=== PATIENT | female | born 1990 | race African-American/Black ===

== ENCOUNTER 2017-09-06 13:36 | Emergency (ER) | payer BC, OTHER ==
[2017-09-06 14:53] LABS: Bilirubin Negative (Negative); Blood, Urine Negative (Negative); Clarity Clear (Clear); Glucose, Urine (Dipstick) Negative (Negative); Leukocyte Negative (Negative); Nitrite Negative (Negative); Protein, Urine (Dipstick) Negative (Neg-Trace); pH, Urine 7.5 (5.0-9.0)
[2017-09-06 15:49] LABS: Pregnancy Test - Urine (BHCG) Negative (Negative); Pregu Control Background? CLEAR/WHITE (CLR/WHITE); Pregu Control Bar Appear? YES (CONTROL BAR)
--- NOTE | 2017-09-06 16:04 | RAD ---
CERVICAL SPINE THREE VIEWS: 09/06/17 HISTORY: 26-year-old female with neck injury. Portions of the odontoid and C2 and C1 are partially obscured on the AP open mouth views. No evidenc e for acute fracture or dislocation. No soft tissue swelling. No malalignment. IMPRESSION: Portions of C1 and C2 odontoid are partially obscured. No malalignment or prevertebral soft tissue s welling or fracture involving the visualized C-spine. If there remains clinical concern for acute cervical spine injury, consider followup CT. POS: [facility]
--- NOTE | 2017-09-06 16:05 | RAD ---
THREE VIEWS LUMBAR SPINE: History: Injury. Comparison: None. FINDINGS: Five lumbar type vertebral bodies. Lumbar spine vertebral body height is maintained. No fracture. No malalignment. IMPRESSION: Unremarkable three views lumbar spine. POS: [facility]
--- NOTE | 2017-09-06 16:11 | RAD ---
THREE VIEWS THORACIC SPINE: 09/06/17 INDICATION: Back injury with pain. FINDINGS: No acute fracture or subluxation is evident. Paraspinal alignment is preserved. Visualized lungs are clear. There is twelve rib bearing thoracic vertebra. IMPRESSION: No acute osseous abnormality. POS: [facility]
== END 2017-09-06 16:02 | disposition home or self-care (01) ==
LOC: NAV ERS 13:36
DX: S39.012A Strain of muscle, fascia and tendon of lower back, initial encounter (principal); S16.1XXA Strain of muscle, fascia and tendon at neck level, initial encounter; V43.91XA Unspecified car occupant injured in collision with sport utility vehicle in traffic accident, initial encounter
CPT/HCPCS: 72040; 72072; 72100; 81003; 81025

== ENCOUNTER 2017-12-02 13:12 | Emergency (ER) | payer BC, OTHER | END 2017-12-02 13:49 | disposition home or self-care (01) | LOC: NAV ERS 13:12 | DX: B34.9 Viral infection, unspecified (principal) | CPT/HCPCS: 99283 ==

== ENCOUNTER 2017-12-26 21:13 | Emergency (ER) | payer BC ==
[2017-12-26] MEDS ORDERED: Sodium Chloride 0.9% 1,000 ML ONE (21:36)
[2017-12-26 21:53] LABS: #Basophils 0.1 thou/uL (0.0-0.2); #Eosinphils 0.3 thou/uL (0.0-0.7); #Lymphocytes 4.2 thou/uL (1.20-3.40); #Monocytes 0.7 thou/uL (0.11-0.59); %Basophils 1.2 % (0.0-1.0); %Eosinophils 3.2 % (0.0-10.0); %Lymphocytes 40.3 % (21.0-51.0); %Monocytes 6.7 % (0.0-10.0); %Neutrophils 48.6 % (42.0-75.0); Hemoglobin 12.8 g/dL (12.0-16.0); Mean Corpuscular HGB CONC 33.3 g/dL (32.0-36.0); Mean Corpuscular Volume 84.1 fl (81.0-99.0); Mean Platelet Volume 9.9 fL (7.4-10.4); Platelet Count 260 thou/uL (130-400); Red Blood Cell (RBC) Count 4.59 mill/uL (4.20-5.40); White Blood Cell (WBC) Count 10.3 thou/uL (4.8-10.8)
[2017-12-26] MEDS ORDERED: Ibuprofen 800 MG TAB ONE (22:03)
[2017-12-26 22:22] LABS: ALT (SGPT) 30 U/L (8-55); AST (SGOT) 19 U/L (5-34); Albumin 3.9 g/dL (3.5-5.0); Alkaline Phosphatase 93 U/L (40-150); Anion Gap 14 mmol/L (10-20); BUN (Urea Nitrogen) 9 mg/dL (7.0-18.7); Bilirubin, Total 0.2 mg/dL (0.2-1.2); Calc. Creatinine Clearance 0 mL/min (70-130); Calcium 9.6 mg/dL (7.8-10.44); Carbon Dioxide 27 mmol/L (22-29); Chloride 103 mmol/L (98-107); Estimated GFR-MDRD Greater than 90; Globulin 3.8 g/dL (2.4-3.5); Glucose 120 mg/dL (70-105); Potassium 3.5 mmol/L (3.5-5.1); Protein, Total 7.7 g/dL (6.0-8.3); Sodium 140 mmol/L (136-145)
[2017-12-26 22:23] LABS: CKMB 0.7 ng/mL (0-6.6); Troponin I Less than 0.010 ng/mL (< 0.028)
== END 2017-12-26 22:43 | disposition home or self-care (01) ==
LOC: NAV ERS 21:13
DX: I10 Essential (primary) hypertension (principal); R51 Headache; E66.9 Obesity, unspecified; Z79.899 Other long term (current) drug therapy
CPT/HCPCS: 36415; 80053; 82553; 84484; 85025; 93005; 96360; J7050

== ENCOUNTER 2018-08-13 22:54 | Emergency (ER) | payer BC ==
--- NOTE | 2018-08-13 23:40 | RAD ---
RIGHT KNEE FOUR VIEWS: History: Fell off of porch with knee pain. FINDINGS: There is suggestion of some slight medial compartment narrowing. There are no signs of fracture, disl ocation, or joint effusion. IMPRESSION: No evidence of fracture. POS: [facility]
--- NOTE | 2018-08-13 23:41 | RAD ---
LEFT ANKLE THREE VIEWS: History: Ankle pain after injury. FINDINGS: There are no signs of fracture, dislocation, or joint effusion. IMPRESSION: No evidence of fracture. POS: [facility]
[2018-08-13] MEDS ORDERED: Triple Antibiotic Oint 1 GM Packet ONE (23:47)
[2018-08-13] MEDS ORDERED: Adacel (T-DAP) 0.5 ML VIAL ONE (23:47)
[2018-08-13] MEDS ORDERED: Ibuprofen 800 MG TAB ONE (23:47)
== END 2018-08-14 00:07 | disposition home or self-care (01) ==
LOC: NAV ERS 22:54
DX: S80.01XA Contusion of right knee, initial encounter (principal); S90.02XA Contusion of left ankle, initial encounter; W10.9XXA Fall (on) (from) unspecified stairs and steps, initial encounter
CPT/HCPCS: 90471; 90715

== ENCOUNTER 2020-12-26 21:22 | Emergency (ER) | payer BC ==
[2020-12-26 21:51] LABS: BHCG - Serum Negative (NEGATIVE); Pregs Control Bar Appear? YES (CONTROL BAR)
[2020-12-26 21:52] LABS: %Basophils 0.6 % (0.0-1.0); %Eosinophils 1.3 % (0.0-10.0); %Lymphocytes 33.9 % (21.0-51.0); %Monocytes 5.7 % (0.0-10.0); %Neutrophils 58.5 % (42.0-75.0); Hemoglobin 12.9 g/dL (12.0-16.0); Manual Diff?? NO; Mean Corpuscular HGB CONC 33.1 g/dL (32.0-36.0); Mean Corpuscular Hemoglobin 29.9 pg (27.0-31.0); Mean Corpuscular Volume 90.2 fL (78.0-98.0); Mean Platelet Volume 7.3 fL (7.4-10.4); Platelet Count 302 thou/uL (130-400); Red Blood Cell (RBC) Count 4.33 mill/uL (4.20-5.40); White Blood Cell (WBC) Count 12.3 thou/uL (4.8-10.8)
[2020-12-26 21:53] LABS: #Basophils 0.1 thou/uL (0.0-0.2); #Eosinphils 0.2 thou/uL (0.0-0.7); #Lymphocytes 4.2 thou/uL (1.20-3.40); #Monocytes 0.7 thou/uL (0.11-0.59); #Neutrophils 7.2 thou/uL (1.40-6.50)
[2020-12-26 22:02] LABS: ALT (SGPT) 24 U/L (8-55); AST (SGOT) 19 U/L (5-34); Albumin 4.4 g/dL (3.5-5.0); Alcohol Less than 10 mg/dL (Less than 10); Alkaline Phosphatase 121 U/L (40-110); Anion Gap 18 mmol/L (10-20); BUN (Urea Nitrogen) 11 mg/dL (7.0-18.7); Bilirubin, Total 0.2 mg/dL (0.2-1.2); Calc. Creatinine Clearance 0 mL/min (70-130); Calcium 9.4 mg/dL (7.8-10.44); Carbon Dioxide 24 mmol/L (22-29); Chloride 101 mmol/L (98-107); Globulin 3.9 g/dL (2.4-3.5); Glucose 111 mg/dL (70-105); Lipase 29 U/L (8-78); Potassium 3.7 mmol/L (3.5-5.1); Protein, Total 8.3 g/dL (6.0-8.3); Sodium 139 mmol/L (136-145)
[2020-12-26 22:07] LABS: PTT 26.5 sec (22.9-36.1)
--- NOTE | 2020-12-26 22:46 | CT ---
Exam: CT cervical spine without contrast HISTORY: Trauma. Pain. COMPARISON: None FINDINGS: No craniocervical dissociation. Appropriate alignment of the lateral masses of C1 and C2. Intact odon toid process Appropriate alignment of the facets. Straightening of cervical lordosis is presumed to be due to patient position, muscle spasm or cervica l collar. Soft tissue neck structures: No mass, lymphadenopathy or hematoma. No prevertebral soft tissue swelli ng. Upper mediastinum and lung apices: Unremarkable Central spinal canal: Neural foramina and central spinal canal are patent. Evaluation is limited by t echnique Vertebral bodies: Cervical spine vertebral body height is maintained. No fracture. IMPRESSION: 1. No cervical spine fracture 2. Straightening of cervical lordosis as detailed above. For ligamentous injury, consider cervical sp ine MRI.
--- NOTE | 2020-12-26 23:01 | CT ---
Exam: Chest CT with contrast HISTORY: Trauma. Pain. FINDINGS: No mediastinal mass, lymphadenopathy or hematoma. Normal heart size. No significant pericardial fluid. Visualized aorta has a normal caliber. No periao rtic fat stranding No posttraumatic changes in the subdiaphragmatic structures. There is hepatic steatosis. Trachea and central bronchi are patent. Dependent atelectatic changes are minimal. No mass, consolida tion or pulmonary contusion. No pleural effusion or pneumothorax. Visualized clavicles, scapula, sternum and ribs are intact. Visualized thoracic spine demonstrates preservation of vertebral body height. No evidence of a thorac ic spine fracture. IMPRESSION: No posttraumatic change in the chest.
== END 2020-12-26 23:14 | disposition home or self-care (01) ==
LOC: NAV ERS 21:22
DX: S13.4XXA Sprain of ligaments of cervical spine, initial encounter (principal); S23.3XXA Sprain of ligaments of thoracic spine, initial encounter; I10 Essential (primary) hypertension; V49.9XXA Car occupant (driver) (passenger) injured in unspecified traffic accident, initial encounter
CPT/HCPCS: 71260; 72125; 80053; 80307; 82150; 83690; 84484; 84703; 85025; 85610; 85730; 94760

== ENCOUNTER 2021-02-22 12:42 | Emergency (ER) | payer BC ==
[2021-02-22 13:10] LABS: Bilirubin Negative (Negative); Blood, Urine Trace (Negative); Clarity Clear (Clear); Glucose, Urine (Dipstick) Negative (Negative); Ketone, Urine Negative (Negative); Leukocyte Negative (Negative); Nitrite Negative (Negative); Protein, Urine (Dipstick) 30 mg/dL (Neg-Trace); Urobilinogen 0.2 mg/dL (Less than 2); pH, Urine 6.5 (5.0-9.0)
[2021-02-22 13:19] LABS: RBC/HPF None Seen HPF (0-3); Specific Gravity, Urine 1.028 (1.002-1.036); Squamous Epithelial 0-3 HPF (0-3)
[2021-02-22 13:20] LABS: Pregnancy Test - Urine (BHCG) POSITIVE (Negative); Pregu Control Background? CLEAR/WHITE (CLR/WHITE); Pregu Control Bar Appear? YES (CONTROL BAR); Specific Gravity 1.028 (1.002-1.036)
[2021-02-22] MEDS ORDERED: Morphine 4 MG/ML VIAL ONE (13:56)
[2021-02-22] MEDS ORDERED: Ondansetron PF 4 MG/2 ML Vial ONE (13:56)
[2021-02-22 14:10] LABS: #Monocytes 0.6 thou/uL (0.11-0.59); #Neutrophils 14.1 thou/uL (1.40-6.50); %Basophils 0.2 % (0.0-1.0); %Eosinophils 0.1 % (0.0-10.0); %Lymphocytes 6.4 % (21.0-51.0); %Monocytes 3.6 % (0.0-10.0); %Neutrophils 89.7 % (42.0-75.0); Hemoglobin 12.1 g/dL (12.0-16.0); Mean Corpuscular HGB CONC 29.7 g/dL (32.0-36.0); Mean Corpuscular Hemoglobin 28.5 pg (27.0-31.0); Mean Platelet Volume 8.3 fL (7.4-10.4); Platelet Count 319 thou/uL (130-400); RBC Distribution Width 13.4 % (11.5-14.5); Red Blood Cell (RBC) Count 4.23 mill/uL (4.20-5.40); White Blood Cell (WBC) Count 15.7 thou/uL (4.8-10.8)
[2021-02-22 14:38] LABS: ALT (SGPT) 12 U/L (8-55); AST (SGOT) 13 U/L (5-34); Albumin 4.1 g/dL (3.5-5.0); Alkaline Phosphatase 100 U/L (40-110); Anion Gap 18 mmol/L (10-20); BUN (Urea Nitrogen) 11 mg/dL (7.0-18.7); Bilirubin, Total 0.2 mg/dL (0.2-1.2); Calc. Creatinine Clearance 0 mL/min (70-130); Carbon Dioxide 20 mmol/L (22-29); Chloride 103 mmol/L (98-107); Globulin 3.6 g/dL (2.4-3.5); Glucose 124 mg/dL (70-105); Lipase 18 U/L (8-78); Potassium 4.3 mmol/L (3.5-5.1); Protein, Total 7.7 g/dL (6.0-8.3); Sodium 137 mmol/L (136-145)
== END 2021-02-22 15:38 | disposition short-term general hospital (02) ==
LOC: NAV ERS 12:42
DX: O99.111 Other diseases of the blood and blood-forming organs and certain disorders involving the immune mechanism complicating pregnancy, first trimester (principal); D72.829 Elevated white blood cell count, unspecified; Z3A.01 Less than 8 weeks gestation of pregnancy
CPT/HCPCS: 80053; 81003; 81015; 81025; 83690; 84702; 85025; 96374; 96375; J2270; J2405

== ENCOUNTER 2022-01-19 20:34 | Emergency (ER) | payer BC ==
[2022-01-19 21:34] LABS: Bilirubin Negative (Negative); Blood, Urine Negative (Negative); Clarity Clear (Clear); Glucose, Urine (Dipstick) Negative (Negative); Ketone, Urine Trace mg/dL (Negative); Leukocyte Negative (Negative); Nitrite Negative (Negative); Protein, Urine (Dipstick) Negative (Neg-Trace)
[2022-01-19 21:40] LABS: Pregnancy Test - Urine (BHCG) Negative (Negative); Pregu Control Bar Appear? YES (CONTROL BAR)
[2022-01-19 21:41] LABS: Pregu Control Background? CLEAR/WHITE (CLR/WHITE)
== END 2022-01-19 22:25 | disposition home or self-care (01) ==
LOC: NAV ERS 20:34
DX: M54.50 Low back pain, unspecified (principal); I10 Essential (primary) hypertension
CPT/HCPCS: 81003; 81025; 99283

== ENCOUNTER 2022-09-16 20:22 | Emergency (ER) | payer BC ==
[2022-09-16] MEDS ORDERED: Ibuprofen 200 MG TAB ONE (21:07)
[2022-09-16] MEDS ORDERED: Meclizine HCl 25 MG TAB ONE (21:07)
== END 2022-09-16 21:20 | disposition home or self-care (01) ==
LOC: NAV ERS 20:22
DX: H81.10 Benign paroxysmal vertigo, unspecified ear (principal); I10 Essential (primary) hypertension
CPT/HCPCS: 99283

== ENCOUNTER 2022-12-04 01:03 | Emergency (ER) | payer OTHER, BC | END 2022-12-04 01:40 | disposition home or self-care (01) | LOC: NAV ERS 01:03 | DX: R55 Syncope and collapse (principal); I10 Essential (primary) hypertension; W18.30XA Fall on same level, unspecified, initial encounter; Y92.69 Other specified industrial and construction area as the place of occurrence of the external cause | CPT/HCPCS: 36416; 93005 ==

== ENCOUNTER 2023-02-12 12:19 | Emergency (ER) | payer BC | END 2023-02-12 13:43 | disposition home or self-care (01) | LOC: NAV ERS 12:19 | DX: J02.9 Acute pharyngitis, unspecified (principal); H69.93 Unspecified Eustachian tube disorder, bilateral; J06.9 Acute upper respiratory infection, unspecified; I10 Essential (primary) hypertension | CPT/HCPCS: 87081; 87430; 99283 ==

== ENCOUNTER 2023-05-05 08:53 | Emergency (ER) | payer BC ==
[2023-05-05 09:19] LABS: Bacteria/HPF Rare-Few HPF (None Seen); Bilirubin Negative (Negative); Blood, Urine Negative (Negative); CAUTI Indications for Culture Dysuria,urgency,freq; Clarity Clear (Clear); Glucose, Urine (Dipstick) Negative (Negative); Ketone, Urine Negative (Negative); Leukocyte Negative (Negative); Nitrite Positive (Negative); Protein, Urine (Dipstick) Negative (Neg-Trace); Specific Gravity, Urine 1.015 (1.005-1.030); Squamous Epithelial 0-3 HPF (0-3); WBC/HPF 0-3 HPF (0-3)
[2023-05-05 09:20] LABS: Urine Culture Reflex No No
== END 2023-05-05 09:58 | disposition home or self-care (01) ==
LOC: NAV ERS 08:53
DX: N39.0 Urinary tract infection, site not specified (principal); I10 Essential (primary) hypertension
CPT/HCPCS: 81001; 99283

== ENCOUNTER 2023-11-07 11:13 | Emergency (ER) | payer BC, OTHER ==
[2023-11-07] MEDS ORDERED: Ibuprofen 800 MG TAB ONE (11:46)
== END 2023-11-07 12:17 | disposition home or self-care (01) ==
LOC: NAV ERS 11:13
DX: S29.012A Strain of muscle and tendon of back wall of thorax, initial encounter (principal); S80.01XA Contusion of right knee, initial encounter; S80.02XA Contusion of left knee, initial encounter; I10 Essential (primary) hypertension; V40.6XXA Car passenger injured in collision with pedestrian or animal in traffic accident, initial encounter
CPT/HCPCS: 99283

== ENCOUNTER 2023-11-13 02:08 | Emergency (ER) | payer BC, SELFPAY ==
[2023-11-13] MEDS ORDERED: Sodium Chloride 0.9% 1,000 ML ONE (02:47)
[2023-11-13] MEDS ORDERED: Acetaminophen 325 MG TAB ONE (02:48)
[2023-11-13 03:01] LABS: #Basophils 0.1 thou/uL (0.0-0.2); #Eosinphils 0.1 thou/uL (0.0-0.7); #Lymphocytes 2.1 thou/uL (1.20-3.40); #Monocytes 0.7 thou/uL (0.11-0.59); #Neutrophils 5.3 thou/uL (1.40-6.50); %Basophils 1.5 % (0.0-1.0); %Eosinophils 0.7 % (0.0-10.0); %Lymphocytes 25.5 % (21.0-51.0); %Monocytes 8.2 % (0.0-10.0); %Neutrophils 64.2 % (42.0-75.0); Hematocrit 38.5 % (36.0-47.0); Hemoglobin 12.8 g/dL (12.0-16.0); Mean Corpuscular HGB CONC 33.1 g/dL (32.0-36.0); Mean Corpuscular Hemoglobin 31.2 pg (27.0-31.0); Mean Corpuscular Volume 94.1 fl (78.0-98.0); Mean Platelet Volume 7.8 fL (7.4-10.4); Platelet Count 256 10x3/uL (130-400); RBC Distribution Width 13.9 % (11.5-14.5); Red Blood Cell (RBC) Count 4.09 mill/uL (4.20-5.40); White Blood Cell (WBC) Count 8.2 10x3/uL (4.8-10.8)
[2023-11-13 03:05] LABS: BHCG - Serum Negative (NEGATIVE); Pregs Control Bar Appear? YES (CONTROL BAR)
[2023-11-13 03:15] LABS: ALT (SGPT) 12 U/L (8-55); AST (SGOT) 25 U/L (5-34); Albumin 4.3 g/dL (3.5-5.0); Alkaline Phosphatase 85 U/L (40-110); Anion Gap 16 mmol/L (10-20); BUN (Urea Nitrogen) 8 mg/dL (7.0-18.7); Bilirubin, Total 0.2 mg/dL (0.2-1.2); Calc. Creatinine Clearance 0 mL/min (70-130); Calcium 8.8 mg/dL (7.8-10.44); Carbon Dioxide 20 mmol/L (22-29); Chloride 108 mmol/L (98-107); Estimated GFR 110; Globulin 4.2 g/dL (2.4-3.5); Glucose 128 mg/dL (70-105); Lipase 23 U/L (8-78); Potassium 4.1 mmol/L (3.5-5.1); Protein, Total 8.5 g/dL (6.0-8.3); Sodium 140 mmol/L (136-145)
== END 2023-11-13 04:36 | disposition short-term general hospital (02) ==
LOC: NAV ERS 02:08
DX: R07.9 Chest pain, unspecified (principal); R10.12 Left upper quadrant pain; I10 Essential (primary) hypertension; Y04.8XXA Assault by other bodily force, initial encounter
CPT/HCPCS: 80053; 83690; 84703; 85025; J7050

== ENCOUNTER 2025-06-01 16:27 | Emergency (ER) | payer OTHER ==
[~2025-06-01 16:27] MED LIST: Iopamidol 370 76% 100 ML VIAL ONE
[2025-06-01 17:11] LABS: #Basophils 0.1 thou/uL (0.0-0.2); #Eosinophils 0.1 thou/uL (0.0-0.7); #Lymphocytes 2.3 thou/uL (1.20-3.40); #Monocytes 0.4 thou/uL (0.11-0.59); #Neutrophils 4.5 thou/uL (1.40-6.50); %Basophils 0.9 % (0.0-1.0); %Eosinophils 1.1 % (0.0-10.0); %Lymphocytes 31.7 % (21.0-51.0); %Monocytes 5.8 % (0.0-10.0); %Neutrophils 60.4 % (42.0-75.0); Hematocrit 30.0 % (36.0-47.0); Hemoglobin 9.0 g/dL (12.0-16.0); Mean Corpuscular Hemoglobin 23.8 pg (27.0-31.0); Mean Corpuscular Volume 79.0 fl (78.0-98.0); Platelet Count 338 10x3/uL (130-400); Red Blood Cell (RBC) Count 3.80 mill/uL (4.20-5.40); White Blood Cell (WBC) Count 7.4 10x3/uL (4.8-10.8)
[2025-06-01 17:13] LABS: BHCG - Serum Negative (NEGATIVE); Pregs Control Bar Appear? YES (CONTROL BAR)
[2025-06-01 17:21] LABS: ALT (SGPT) 10 U/L (Less than 34); AST (SGOT) 22 U/L (11-34); Albumin 3.5 g/dL (3.1-4.5); Alkaline Phosphatase 132 U/L (40-110); Anion Gap 14 mmol/L (10-20); BUN (Urea Nitrogen) 8 mg/dL (7.0-18.7); Bilirubin, Total 0.1 mg/dL (0.3-1.2); Calc. Creatinine Clearance 0 mL/min (70-130); Calcium 9.1 mg/dL (7.8-10.44); Carbon Dioxide 22 mmol/L (22-29); Chloride 107 mmol/L (98-107); Globulin 4.4 g/dL (2.4-3.5); Glucose 96 mg/dL (70-105); Lipase 43 U/L (8-78); Potassium 3.6 mmol/L (3.5-5.1); Sodium 139 mmol/L (136-145)
[2025-06-01] MEDS ORDERED: Acetaminophen 325 MG TAB ONE (17:40)
[2025-06-01 19:46] LABS: Anisocytosis SLIGHT = 6-15 cells (100X) (0-5/hpf); Microcytosis SLIGHT = 6-15 cells (100X) (0-5/hpf); Poikilocytosis SLIGHT = 6-15 cells (100X) (0-5/hpf); Polychromasia SLIGHT = 2-3 cells (100X) (0-2/hpf)
[2025-06-01 19:47] LABS: Helmet Cells SLIGHT = 2-5 cells (100X) (0-1/hpf); Schistocytes SLIGHT = 2-5 cells (100X) (0-1/hpf)
== END 2025-06-01 19:10 | disposition home or self-care (01) ==
LOC: NAV ERS 16:27
DX: S13.4XXA Sprain of ligaments of cervical spine, initial encounter (principal); S29.011A Strain of muscle and tendon of front wall of thorax, initial encounter; S39.012A Strain of muscle, fascia and tendon of lower back, initial encounter; D64.9 Anemia, unspecified; R10.9 Unspecified abdominal pain; I10 Essential (primary) hypertension; V49.50XA Passenger injured in collision with unspecified motor vehicles in traffic accident, initial encounter; Z79.899 Other long term (current) drug therapy
CPT/HCPCS: 71260; 72125; 74177; 80053; 83690; 84703; 85025; Q9967

== ENCOUNTER 2025-08-04 08:34 | Emergency (ER) | payer OTHER ==
[2025-08-04] MEDS ORDERED: Naproxen 500 MG TAB ONE (09:05)
== END 2025-08-04 10:03 | disposition home or self-care (01) ==
LOC: NAV ERS 08:34
DX: S46.912A Strain of unspecified muscle, fascia and tendon at shoulder and upper arm level, left arm, initial encounter (principal); S00.03XA Contusion of scalp, initial encounter; I10 Essential (primary) hypertension; Y04.8XXA Assault by other bodily force, initial encounter
CPT/HCPCS: 70450; 72125